=== PATIENT | male | born 1975 | race Caucasian/White ===

== ENCOUNTER 2017-09-09 06:26 | Emergency (ER) | payer BC ==
[~2017-09-09] VITALS: Ht 195.6 cm; Wt 95.3 kg
[2017-09-09] MEDS ORDERED: ZITHROMAX500 MG PO ×2 (07:28→07:32)
[2017-09-09] MEDS ORDERED: ZYNCOF 20-400120 ML PO ×2 (07:31→07:32)
== END 2017-09-09 07:39 | disposition home or self-care (01) ==
LOC: ER 06:26
DX: J06.9 Acute upper respiratory infection, unspecified (principal)